=== PATIENT | female | born 1940 | race Caucasian/White ===

== ENCOUNTER 2019-08-07 12:01 | Observation (INO) ==
[2019-08-07] MEDS ORDERED: 0.9 % Sodium Chloride 1,000 ML IV ONE (12:19)
[2019-08-07] MEDS ORDERED: Ondansetron 4 MG/2 ML VIAL IVP ONE (12:19)
[2019-08-07 12:27] LABS: Bilirubin,Urine Negative (Negative); Blood,Urine Large (Negative); Clarity,Urine Cloudy (Clear); Color,Urine Yellow (Yellow); Glucose,Urine (UA) Normal (Normal); Ketones,Urine 15 mg/dL (Negative); Leukocyte Esterase,Urine Small (Negative); Nitrite,Urine Negative (Negative); PH,Urine 5.5 pH Units (5.0-8.0); Protein,Urine >=300 mg/dL (Neg-Trace); Specific Gravity,Urine 1.025 (1.010-1.025); Urobilinogen,Urine Normal (Normal)
[2019-08-07 12:42] LABS: RBC,Urine 15-30 per hpf (0-3); WBC,Urine TNTC per hpf (0-3)
[2019-08-07 12:43] LABS: Amorphous Sediment,Urine Moderate per hpf (Few); Bacteria,Urine Moderate per hpf (None-Few); Granular Casts,Urine Few per lpf (None Seen); Mucus,Urine Many per lpf (Few); Squamous Epithelial Cell,Urine Few per lpf (None-Few)
[2019-08-07 12:48] LABS: Basophils % 0.1 %; Hematocrit 28.5 % (35.3-44.9); Hemoglobin 9.5 g/dL (11.5-15.4); Immature Granulocytes % 1.4 % (0-4); Lymphocytes # 0.6 K/mcL (0.6-4.6); Lymphocytes % 2.5 %; Mean Corpuscular HGB Conc 33.3 g/dL (31.6-35.5); Mean Corpuscular Hemoglobin 29.4 pg (28.0-33.3); Mean Corpuscular Volume 88.2 fL (83.0-100.0); Mean Platelet Volume 9.2 fL (9.4-12.4); Monocytes # 1.4 K/mcL (0.0-1.3); Neutrophils # 20.6 K/mcL (1.6-8.9); Platelet Count 378 K/mcL (140-400); Red Blood Count 3.23 M/mcL (3.82-4.97); Red Cell Distribution Width 13.3 % (11.5-14.5); White Blood Count 22.9 K/mcL (4.3-11.1)
[2019-08-07 13:03] LABS: Albumin 3.6 g/dL (3.5-5.7); Albumin/Globulin Ratio 0.9 (1.1-2.2); Bilirubin,Total 0.8 mg/dL (0.3-1.0); Globulin 3.8 g/dL (2.4-3.5); Potassium 3.5 mEq/L (3.5-5.1); Total Protein 7.4 g/dL (6.4-8.9)
[2019-08-07] MEDS ORDERED: Mag Hydrox/Al Hydrox/Simeth 30 ML UDC PO PRN (16:12)
[2019-08-07] MEDS ORDERED: Ondansetron 4 MG/2 ML VIAL IVP PRN (16:12)
[2019-08-07] MEDS ORDERED: MOM Conc 10 ML UD.LIQ PO PRN (16:12)
[2019-08-07] MEDS ORDERED: Naloxone 0.4 MG/ML INJ IVP PRN (16:12)
[2019-08-07] MEDS ORDERED: ALPRAZolam 0.25 MG TABLET PO PRN (16:16)
[2019-08-07] MEDS ORDERED: cefTRIAXone 1,000 MG in 0.9 % Sodium Chloride Mini Bag 100 ML IVPB SCH (16:36)
[2019-08-07] MEDS ORDERED: D5% in Water 1,000 ML IVC PRN (17:02)
[2019-08-07] MEDS ORDERED: *HR* Dextrose 50 % in Water (Vial) 50 ML VIAL IVP PRN (17:02)
[2019-08-07] MEDS ORDERED: Dextrose Gel 15 GM/37.5 ML TUBE PO PRN ×2 (17:02)
[2019-08-07] MEDS: 0.9 % Sodium Chloride 1,000 ML IVC SCH (17:09)
[2019-08-07] MEDS: Ondansetron 4 MG/2 ML VIAL IVP PRN (19:40)
[2019-08-07] MEDS: Insulin LISPRO 300 UNITS/3 ML VIAL SQ SCH (20:33)
[2019-08-08] MEDS: Acetaminophen 325 MG TABLET PO PRN ×3 (00:57→20:35)
[2019-08-08] MEDS: 0.9 % Sodium Chloride 1,000 ML IVC SCH ×3 (02:23→20:43)
[2019-08-08] MEDS: Levothyroxine 25 MCG TABLET PO SCH (05:55)
[2019-08-08 07:23] LABS: Basophils % 0.1 %; Hematocrit 25.3 % (35.3-44.9); Hemoglobin 8.6 g/dL (11.5-15.4); Immature Granulocytes % 2.7 % (0-4); Lymphocytes # 0.6 K/mcL (0.6-4.6); Lymphocytes % 3.2 %; Mean Corpuscular Volume 88.2 fL (83.0-100.0); Monocytes # 1.1 K/mcL (0.0-1.3); Monocytes % 5.6 %; Neutrophils # 17.4 K/mcL (1.6-8.9); Platelet Count 310 K/mcL (140-400); Red Blood Count 2.87 M/mcL (3.82-4.97); Red Cell Distribution Width 13.2 % (11.5-14.5); Segmented Neutrophils % 88.4 %; White Blood Count 19.7 K/mcL (4.3-11.1)
[2019-08-08] MEDS: Ondansetron 4 MG/2 ML VIAL IVP PRN (08:09)
[2019-08-08] MEDS: Insulin LISPRO 300 UNITS/3 ML VIAL SQ SCH ×4 (08:10→20:37)
[2019-08-08 08:29] LABS: Potassium 3.2 mEq/L (3.5-5.1)
[2019-08-08 09:09] LABS: Estimated Average Glucose 148 mg/dl
[2019-08-08] MEDS: cefTRIAXone 1,000 MG in 0.9 % Sodium Chloride Mini Bag 100 ML IVPB SCH (17:01)
[2019-08-09] MEDS: Acetaminophen 325 MG TABLET PO PRN ×3 (04:41→18:29)
[2019-08-09 05:28] LABS: Basophils % 0.1 %; Eosinophils % 0.2 %; Hematocrit 24.9 % (35.3-44.9); Hemoglobin 8.2 g/dL (11.5-15.4); Lymphocytes # 0.6 K/mcL (0.6-4.6); Lymphocytes % 4.1 %; Mean Corpuscular HGB Conc 32.9 g/dL (31.6-35.5); Mean Corpuscular Hemoglobin 29.2 pg (28.0-33.3); Mean Corpuscular Volume 88.6 fL (83.0-100.0); Mean Platelet Volume 9.2 fL (9.4-12.4); Monocytes # 0.7 K/mcL (0.0-1.3); Monocytes % 4.2 %; Platelet Count 300 K/mcL (140-400); Red Blood Count 2.81 M/mcL (3.82-4.97); Red Cell Distribution Width 13.3 % (11.5-14.5); Segmented Neutrophils % 90.4 %; White Blood Count 15.5 K/mcL (4.3-11.1)
[2019-08-09] MEDS: 0.9 % Sodium Chloride 1,000 ML IVC SCH ×3 (05:49→23:21)
[2019-08-09] MEDS: Levothyroxine 25 MCG TABLET PO SCH (05:50)
[2019-08-09 05:53] LABS: Calcium 7.5 mg/dL (8.6-10.3); Potassium 3.8 mEq/L (3.5-5.1)
[2019-08-09] MEDS: Insulin LISPRO 300 UNITS/3 ML VIAL SQ SCH ×4 (08:25→23:22)
[2019-08-09 09:08] LABS: Folate 10.9 ng/mL (3.0-16.0)
[2019-08-09] MEDS: cefTRIAXone 1,000 MG in 0.9 % Sodium Chloride Mini Bag 100 ML IVPB SCH (16:13)
[2019-08-10] MEDS: Acetaminophen 325 MG TABLET PO PRN ×3 (00:45→14:02)
[2019-08-10] MEDS: 0.9 % Sodium Chloride 1,000 ML IVC SCH (04:58)
[2019-08-10] MEDS: Levothyroxine 25 MCG TABLET PO SCH (06:01)
[2019-08-10 06:44] LABS: Basophils % 0.2 %; Eosinophils # 0.1 K/mcL (0.0-0.6); Eosinophils % 0.5 %; Hematocrit 28.5 % (35.3-44.9); Hemoglobin 9.5 g/dL (11.5-15.4); Immature Granulocytes % 0.8 % (0-4); Lymphocytes # 0.6 K/mcL (0.6-4.6); Lymphocytes % 4.9 %; Mean Corpuscular HGB Conc 33.3 g/dL (31.6-35.5); Mean Corpuscular Hemoglobin 29.8 pg (28.0-33.3); Mean Corpuscular Volume 89.3 fL (83.0-100.0); Mean Platelet Volume 9.5 fL (9.4-12.4); Monocytes # 0.6 K/mcL (0.0-1.3); Monocytes % 4.5 %; Platelet Count 364 K/mcL (140-400); Red Blood Count 3.19 M/mcL (3.82-4.97); Red Cell Distribution Width 13.6 % (11.5-14.5); Segmented Neutrophils % 89.1 %; White Blood Count 12.4 K/mcL (4.3-11.1)
[2019-08-10 07:08] LABS: Calcium 7.7 mg/dL (8.6-10.3); Potassium 3.5 mEq/L (3.5-5.1)
[2019-08-10 08:05] LABS: Neutrophils # 11.1 K/mcL (1.6-8.9)
[2019-08-10] MEDS: Insulin LISPRO 300 UNITS/3 ML VIAL SQ SCH ×2 (08:40→12:00)
[2019-08-10 10:53] VITALS: BP 160/87
== END 2019-08-10 14:40 | disposition short-term general hospital (02) ==
LOC: EMEROOPIK 12:01 → INPPIK 12:01
PROVIDERS: ADMIT Family Medicine; ATTEND Family Medicine